=== PATIENT | female | born 1985 | race Caucasian/White ===

== ENCOUNTER 2017-01-25 20:58 | Emergency (ER) | payer MEDICAID ==
[~2017-01-25] VITALS: Ht 121.9 cm; Wt 44.0 kg
[~2017-01-25 20:58] MED LIST: ASCO500T20 PO; BENZ1LOZ58 MM; COLL30OI2 TP; CRAN450C PO; DOCU250C71 PO; DULR10 RC; ERGO400C2 PO; FAMO-129 PO; FERR-57 PO; HYDR-1189 PO; IBUP-1479 PO; LACT1CAP61 PO; LISI10TA PO; MAGN250T31 PO; MAGN355O5 PO; MAGN400O4 PO; METO-304 PO; MINE396O3 TP; MULT-1117 PO; NA P118E RC; NYSCR30 TP; SODI1TAB3 PO; VIT60OIN3 TP; VITA100014 PO; VITA400T9 PO; WHEY227P PO; ZINC113O4 TP; [UNRECOGNIZED DRUG - CODE] TP
[2017-01-25 21:13] VITALS: BP_SYST 119
[2017-01-26 00:31] VITALS: BP_SYST 115
== END 2017-01-26 00:31 | disposition home or self-care (01) ==
LOC: SED 20:58
DX: B34.9 Viral infection, unspecified (principal); I10 Essential (primary) hypertension; M41.9 Scoliosis, unspecified; G80.9 Cerebral palsy, unspecified; Q05.9 Spina bifida, unspecified; Z79.899 Other long term (current) drug therapy; Z88.1 Allergy status to other antibiotic agents; Z91.040 Latex allergy status
CPT/HCPCS: 71010; 99283

== ENCOUNTER 2017-12-12 12:52 | Emergency (ER) | payer MEDICAID ==
[~2017-12-12] VITALS: Ht 121.9 cm; Wt 44.9 kg
[2017-12-12 13:02] VITALS: BP_SYST 120
--- NOTE | 2017-12-12 13:14 | NUR ---
Patient to ER bed 7 to gown for evaluation. Side rails up. Report given to Neha MAXWELL.
--- NOTE | 2017-12-12 13:20 | NUR ---
Pt brought by caregiver, pt A&Ox4, patient arrived in wheelchair,Hx of spina bifida, pt is afebrile, c/o white discharge from vagina and rectum x 3 days, had black BM yesterday, denies bleeding or pain, pt has urostomy bag, repsirations are even and unlabored, cap refill <3, will cont to monitor.
--- NOTE | 2017-12-12 13:25 | NUR ---
Dr Eugene at bedside examining patient
--- NOTE | 2017-12-12 13:52 | NUR ---
X-RAY at bedside
[2017-12-12] MEDS ORDERED: FLUCONAZOLE 200 MG TABLET (DIFLUCAN) PO ONE (15:15)
--- NOTE | 2017-12-12 15:25 | NUR ---
Pt medicated with PO abx tolerated well.
[2017-12-12] MEDS ORDERED: FLUCONAZOLE 100 MG TABLET (DIFLUCAN) PO ONE (15:30)
--- NOTE | 2017-12-12 15:40 | NUR ---
Patient given written and verbal discharge instructions and verbalizes understanding. ER MD discussed with patient the results and treatment provided. Patient in stable condition. ID arm band removed. Rx of [place], given. Patient educated on pain management and to follow up with OB. Pain Scale 0/10. Opportunity for questions provided and answered. Medication side effect fact sheet provided.
[2017-12-12 15:41] VITALS: BP_SYST 110
== END 2017-12-12 15:40 | disposition home or self-care (01) ==
LOC: SED 12:52
DX: B37.3 Candidiasis of vulva and vagina (principal); I10 Essential (primary) hypertension; M41.9 Scoliosis, unspecified; Z88.1 Allergy status to other antibiotic agents; Z91.040 Latex allergy status; Z79.899 Other long term (current) drug therapy
CPT/HCPCS: 74018; 81025; 99283

== ENCOUNTER 2018-03-27 13:04 | Inpatient (IN) | payer MEDICAID ==
[~2018-03-27] VITALS: Ht 121.9 cm; Wt 45.8 kg
[~2018-03-27 13:04] MED LIST changes: -IBUP-1479 PO; +IBUP-1968 PO; +MAGN250T10 PO; -MAGN250T31 PO; -MAGN400O4 PO; -METO-304 PO; +METO-540 PO; +MOM PO
[2018-03-27 13:17] VITALS: BP_SYST 124
[2018-03-27 14:11] LABS: BASOPHILS % (AUTO) 0.5 % (0.0-2.0); EOSINOPHILS # (AUTO) 0.4 K/uL (0.0-0.4); EOSINOPHILS % (AUTO) 4.9 % (0.0-4.0); HEMATOCRIT 38.9 % (36-48); HEMOGLOBIN 13.3 g/dL (12.0-16.0); LYMPHOCYTES # (AUTO) 2.5 K/uL (1.0-5.5); LYMPHOCYTES % (AUTO) 33.9 % (20.5-51.5); MEAN CORPUSCULAR HEMOGLOBIN 31 pg (27-31); MEAN CORPUSCULAR HGB CONC 34 % (32-36); MEAN CORPUSCULAR VOLUME 90 fL (79.0-98.0); MONOCYTES # (AUTO) 0.6 K/uL (0.0-1.0); MONOCYTES % (AUTO) 8.8 % (1.7-9.3); NEUTROPHILS # (AUTO) 3.8 K/uL (1.8-7.7); NEUTROPHILS % (AUTO) 51.9 % (40.0-70.0); PLATELET COUNT (AUTO) 459 K/uL (130-430); RED BLOOD CELL COUNT(AUTO) 4.31 MIL/uL (4.2-6.2); RED CELL DISTRIBUTION WIDTH 11.7 % (9.0-15.0); WHITE BLOOD COUNT (AUTO) 7.3 K/uL (4.8-10.8)
[2018-03-27 14:29] LABS: CALCIUM 9.4 mg/dL (8.4-11.0); CREATININE 0.36 mg/dL (0.55-1.30)
[2018-03-27 14:34] LABS: ALBUMIN 2.8 g/dL (3.4-4.8); TOTAL BILIRUBIN 0.3 mg/dL (0.0-1.0)
[2018-03-27] MEDS ORDERED: SODIUM CHLORIDE 3% *HI-ALERT* 500 ML IV ONE (15:00)
[2018-03-27] MEDS ORDERED: HYDROcodone/ACETAMIN 5-325 MG TAB (NORCO/ VICODIN) PO PRN ×3 (16:15→17:00)
[2018-03-27] MEDS ORDERED: IBUPROFEN 400 MG TABLET PO PRN ×2 (16:15→17:00)
[2018-03-27] MEDS ORDERED: MILK OF MAGNESIA 30 ML UDC PO PRN (16:15)
[2018-03-27 16:47] VITALS: BP_SYST 140
[2018-03-27] MEDS ORDERED: NACL 0.9% 1,000 ML IV SCH (16:55)
[2018-03-27] MEDS ORDERED: ZOLPIDEM TARTRATE 5 MG TABLET PO PRN (17:00)
[2018-03-27] MEDS ORDERED: ONDANSETRON HCL 4 MG/2 ML VIAL IVP PRN (17:00)
[2018-03-27] MEDS ORDERED: COMMUNICATION ORDER XX ONE (17:30)
[2018-03-27 17:44] LABS: BILIRUBIN,URINE NEGATIVE (NEGATIVE); CLARITY/URINE SL CLOUDY (CLEAR); COLOR,URINE YELLOW (YELLOW); GLUCOSE,URINE NEGATIVE (NEGATIVE); KETONES,URINE NEGATIVE (NEGATIVE); LEUKOCYTE ESTERASE ,URINE 1+ (NEGATIVE); NITRITE, URINE NEGATIVE (NEGATIVE); PH,URINE 7.5 (5.0-8.0); PROTEIN URINE 2+ (NEGATIVE); UROBILINOGEN,URINE 0.2 (0.2-1.0)
[2018-03-27 17:45] LABS: BLOOD, URINE TRACE (NEGATIVE)
[2018-03-27] MEDS ORDERED: SODIUM CHLORIDE 3% *HI-ALERT* 200 ML IV ONE (17:45)
[2018-03-27 17:47] LABS: BACTERIA,URINE MANY /HPF (None Seen); RBC,URINE 0-3 /HPF (0-3); URINE AMORPHOUS PHOSPHATES 2+ /HPF (None Seen)
[2018-03-27 20:51] VITALS: BP_SYST 115
[2018-03-27] MEDS: DOCUSATE SODIUM 100 MG CAPSULE PO SCH (20:51)
[2018-03-27] MEDS: LISINOPRIL 5 MG TABLET PO SCH (20:51)
[2018-03-27] MEDS: FAMOTIDINE 20 MG TABLET PO SCH (20:51)
[2018-03-27 23:49] VITALS: BP_SYST 104
[2018-03-27 23:57] LABS: CALCIUM 8.7 mg/dL (8.4-11.0); CREATININE 0.24 mg/dL (0.55-1.30); POTASSIUM 4.2 mmol/L (3.5-5.1)
[2018-03-28] MEDS ORDERED: COMMUNICATION ORDER XX ONE (01:15)
[2018-03-28 07:14] LABS: BASOPHILS # (AUTO) 0.1 K/uL (0.0-0.2); BASOPHILS % (AUTO) 0.9 % (0.0-2.0); EOSINOPHILS # (AUTO) 0.3 K/uL (0.0-0.4); EOSINOPHILS % (AUTO) 4.7 % (0.0-4.0); HEMOGLOBIN 11.7 g/dL (12.0-16.0); LYMPHOCYTES # (AUTO) 2.1 K/uL (1.0-5.5); LYMPHOCYTES % (AUTO) 28.6 % (20.5-51.5); MEAN CORPUSCULAR HEMOGLOBIN 32 pg (27-31); MEAN CORPUSCULAR HGB CONC 34 % (32-36); MEAN CORPUSCULAR VOLUME 92 fL (79.0-98.0); MONOCYTES # (AUTO) 0.6 K/uL (0.0-1.0); MONOCYTES % (AUTO) 8.2 % (1.7-9.3); NEUTROPHILS # (AUTO) 4.2 K/uL (1.8-7.7); NEUTROPHILS % (AUTO) 57.6 % (40.0-70.0); PLATELET COUNT (AUTO) 428 K/uL (130-430); RED BLOOD CELL COUNT(AUTO) 3.69 MIL/uL (4.2-6.2); RED CELL DISTRIBUTION WIDTH 11.7 % (9.0-15.0); WHITE BLOOD COUNT (AUTO) 7.3 K/uL (4.8-10.8)
[2018-03-28 07:50] VITALS: BP_SYST 112
[2018-03-28 07:56] LABS: POTASSIUM 4.5 mmol/L (3.5-5.1)
[2018-03-28 07:57] LABS: CALCIUM 8.7 mg/dL (8.4-11.0); CREATININE 0.21 mg/dL (0.55-1.30); THYROID STIMULATING HORMONE 2.24 uIu/mL (0.34-4.82)
[2018-03-28] MEDS ORDERED: MAG-AL HYDROX/SIMETH 30 ML UDC PO ONE (08:45)
[2018-03-28] MEDS: LISINOPRIL 5 MG TABLET PO SCH ×2 (08:52→20:35)
[2018-03-28] MEDS: DOCUSATE SODIUM 100 MG CAPSULE PO SCH ×2 (08:53→20:31)
[2018-03-28] MEDS: FAMOTIDINE 20 MG TABLET PO SCH ×2 (08:53→20:31)
[2018-03-28] MEDS: METOPROLOL SUCCINATE 25 MG TAB.SR.24H (TOPROL XL) PO SCH (08:54)
[2018-03-28] MEDS: SODIUM CHLORIDE 500 MG TABLET PO SCH ×2 (09:04→20:30)
[2018-03-28] MEDS: NACL 0.9% 1,000 ML IV SCH (09:10)
[2018-03-28 12:43] VITALS: BP_SYST 97
[2018-03-28 16:39] VITALS: BP_SYST 100
[2018-03-28 20:00] VITALS: BP_SYST 100
[2018-03-28] MEDS: ONDANSETRON HCL 4 MG/2 ML VIAL IVP PRN (20:32)
[2018-03-28 23:56] VITALS: BP_SYST 95
[2018-03-29] MEDS: NACL 0.9% 1,000 ML IV SCH (01:31)
[2018-03-29] MEDS: ONDANSETRON HCL 4 MG/2 ML VIAL IVP PRN ×2 (01:31→08:31)
[2018-03-29 06:58] LABS: ALBUMIN 2.1 g/dL (3.4-4.8); CALCIUM 8.5 mg/dL (8.4-11.0); CREATININE 0.24 mg/dL (0.55-1.30); POTASSIUM 4.4 mmol/L (3.5-5.1); TOTAL BILIRUBIN 0.5 mg/dL (0.0-1.0)
[2018-03-29 07:26] LABS: BASOPHILS # (AUTO) 0.1 K/uL (0.0-0.2); BASOPHILS % (AUTO) 0.7 % (0.0-2.0); EOSINOPHILS # (AUTO) 0.4 K/uL (0.0-0.4); EOSINOPHILS % (AUTO) 4.9 % (0.0-4.0); HEMATOCRIT 32.2 % (36-48); HEMOGLOBIN 11.1 g/dL (12.0-16.0); LYMPHOCYTES # (AUTO) 2.5 K/uL (1.0-5.5); LYMPHOCYTES % (AUTO) 32.1 % (20.5-51.5); MEAN CORPUSCULAR HEMOGLOBIN 32 pg (27-31); MEAN CORPUSCULAR HGB CONC 35 % (32-36); MEAN CORPUSCULAR VOLUME 91 fL (79.0-98.0); MONOCYTES # (AUTO) 0.7 K/uL (0.0-1.0); MONOCYTES % (AUTO) 8.5 % (1.7-9.3); NEUTROPHILS % (AUTO) 53.8 % (40.0-70.0); PLATELET COUNT (AUTO) 398 K/uL (130-430); RED BLOOD CELL COUNT(AUTO) 3.53 MIL/uL (4.2-6.2); RED CELL DISTRIBUTION WIDTH 11.6 % (9.0-15.0); WHITE BLOOD COUNT (AUTO) 7.7 K/uL (4.8-10.8)
[2018-03-29 08:00] VITALS: BP_SYST 92
[2018-03-29] MEDS: FAMOTIDINE 20 MG TABLET PO SCH (08:31)
[2018-03-29] MEDS: SODIUM CHLORIDE 500 MG TABLET PO SCH (08:31)
[2018-03-29] MEDS: DOCUSATE SODIUM 100 MG CAPSULE PO SCH (08:32)
[2018-03-29] MEDS: METOPROLOL SUCCINATE 25 MG TAB.SR.24H (TOPROL XL) PO SCH (09:00)
[2018-03-29] MEDS: LISINOPRIL 5 MG TABLET PO SCH (09:00)
[2018-03-29 12:37] VITALS: BP_SYST 97
[2018-03-29 15:39] VITALS: BP_SYST 100
[2018-03-29] MEDS ORDERED: SOD (15:45)
[2018-03-29 16:00] VITALS: BP_SYST 100
[2018-03-29] MEDS ORDERED: SODIUM CHLORIDE 500 MG TABLET PO SCH (21:00)
== END 2018-03-29 19:10 | disposition home or self-care (01) | DRG 426 ==
LOC: SED 13:04 → STU 16:14
PROVIDERS: ADMIT Internal Medicine; ATTEND Internal Medicine
DX: E87.1 Hypo-osmolality and hyponatremia (principal); E44.1 Mild protein-calorie malnutrition; G89.29 Other chronic pain; I10 Essential (primary) hypertension; G80.9 Cerebral palsy, unspecified; Z87.442 Personal history of urinary calculi; Z93.6 Other artificial openings of urinary tract status; Z79.899 Other long term (current) drug therapy; Z68.30 Body mass index [BMI] 30.0-30.9, adult; Z88.1 Allergy status to other antibiotic agents; Z91.040 Latex allergy status
CPT/HCPCS: 36415; 80048; 80053; 81000-TC; 83735-TC; 84302-TC; 84443-TC; 85025; 93005; 99291; J2405; J3490; J7030

== ENCOUNTER 2018-09-19 10:25 | Inpatient (IN) | payer MEDICAID ==
[~2018-09-19] VITALS: Ht 121.9 cm; Wt 46.3 kg
[~2018-09-19 10:25] MED LIST changes: -SODI1TAB3 PO
[2018-09-19 10:30] VITALS: BP_SYST 102
[2018-09-19] MEDS ORDERED: NACL 0.9% 1,000 ML IV ONE (11:23)
[2018-09-19] MEDS ORDERED: ONDANSETRON HCL 4 MG/2 ML VIAL IVP ONE (11:30)
[2018-09-19] MEDS ORDERED: PANTOPRAZOLE SODIUM 40 MG/VIAL (PROTONIX) IVP ONE (11:30)
[2018-09-19] MEDS ORDERED: KETOROLAC TROMETHAMINE 30 MG VIAL IVP ONE (11:30)
[2018-09-19 11:50] LABS: BASOPHILS % (AUTO) 0.1 % (0.0-2.0); HEMATOCRIT 32.5 % (36-48); HEMOGLOBIN 11.1 g/dL (12.0-16.0); LYMPHOCYTES # (AUTO) 0.9 K/uL (1.0-5.5); LYMPHOCYTES % (AUTO) 5.7 % (20.5-51.5); MEAN CORPUSCULAR HEMOGLOBIN 33 pg (27-31); MEAN CORPUSCULAR HGB CONC 34 % (32-36); MEAN CORPUSCULAR VOLUME 95 fL (79.0-98.0); MONOCYTES # (AUTO) 0.7 K/uL (0.0-1.0); NEUTROPHILS # (AUTO) 14.9 K/uL (1.8-7.7); NEUTROPHILS % (AUTO) 90.2 % (40.0-70.0); PLATELET COUNT (AUTO) 451 K/uL (130-430); RED BLOOD CELL COUNT(AUTO) 3.42 MIL/uL (4.2-6.2); RED CELL DISTRIBUTION WIDTH 12.2 % (9.0-15.0); WHITE BLOOD COUNT (AUTO) 16.5 K/uL (4.8-10.8)
[2018-09-19 12:06] LABS: CALCIUM 9.5 mg/dL (8.4-11.0); CREATININE 0.39 mg/dL (0.55-1.30); POTASSIUM 3.9 mmol/L (3.5-5.1)
[2018-09-19 12:10] LABS: ALBUMIN 2.4 g/dL (3.4-4.8); TOTAL BILIRUBIN 0.6 mg/dL (0.0-1.0)
[2018-09-19] MEDS ORDERED: NACL 0.9% 1,500 ML IV ONE (12:15)
[2018-09-19 12:40] LABS: BILIRUBIN,URINE NEGATIVE (NEGATIVE); BLOOD, URINE 2+ (NEGATIVE); CLARITY/URINE HAZY (CLEAR); COLOR,URINE YELLOW (YELLOW); GLUCOSE,URINE NEGATIVE (NEGATIVE); KETONES,URINE 3+ (NEGATIVE); LEUKOCYTE ESTERASE ,URINE 3+ (NEGATIVE); NITRITE, URINE NEGATIVE (NEGATIVE); PH,URINE 8.5 (5.0-8.0); PROTEIN URINE 3+ (NEGATIVE); UROBILINOGEN,URINE 0.2 (0.2-1.0)
[2018-09-19] MEDS ORDERED: LEVOFLOXACIN 500 MG/D5W 100 ML IV ONE (12:45)
[2018-09-19 12:59] LABS: BACTERIA,URINE MODERATE /HPF (None Seen); RBC,URINE 20-50 /HPF (0-3); WBC,URINE 50-80 /HPF (0-3)
[2018-09-19 13:02] LABS: URINE AMORPHOUS PHOSPHATES 2+ /HPF (None Seen)
[2018-09-19 13:08] LABS: INR 1.2 (0.8-1.2); PROTHROMBIN TIME 11.7 SECS (9.5-12.5)
[2018-09-19] MEDS ORDERED: MUPIROCIN 2% TOPICAL OINTMENT 22 GM NS PRN (15:45)
[2018-09-19] MEDS ORDERED: ZOLPIDEM TARTRATE 5 MG TABLET PO PRN (15:45)
[2018-09-19] MEDS ORDERED: DOCUSATE SODIUM 100 MG CAPSULE PO PRN (15:45)
[2018-09-19] MEDS ORDERED: ONDANSETRON HCL 4 MG/2 ML VIAL IVP PRN (15:45)
[2018-09-19] MEDS ORDERED: MAGNESIUM SULFATE 50 ML IV PRN (15:45)
[2018-09-19] MEDS ORDERED: LORazepam 2 MG/ML VIAL IVP PRN (15:45)
[2018-09-19] MEDS ORDERED: POTASSIUM CHLORIDE 20 MEQ TAB.PRT.SR PO PRN (15:45)
[2018-09-19] MEDS ORDERED: MORPHINE 2 MG/ML INJ. SYRINGE IVP PRN (15:45)
[2018-09-19] MEDS ORDERED: ACETAMINOPHEN 325 MG TABLET PO PRN (15:45)
[2018-09-19 16:10] VITALS: BP_SYST 129
[2018-09-19] MEDS ORDERED: cefTRIAXone 1 GM IVPB PREMIX 50 ML IV ONE (17:00)
[2018-09-19] MEDS: NACL 0.9% 1,000 ML IV SCH (17:34)
[2018-09-19] MEDS: MORPHINE 2 MG/ML INJ. SYRINGE IVP PRN (17:41)
[2018-09-19 20:00] VITALS: BP_SYST 95
[2018-09-19] MEDS: DOCUSATE SODIUM 100 MG CAPSULE PO SCH (21:06)
[2018-09-19] MEDS: HEPARIN SODIUM,PORCINE 5000 UNITS/ML VIAL SUBCUT SCH (21:08)
[2018-09-19 22:01] LABS: HCG,QUAL RESULT NEGATIVE (NEGATIVE)
[2018-09-20 00:50] VITALS: BP_SYST 96
[2018-09-20] MEDS ORDERED: DIPHENHYDRAMINE HCL 25 MG CAPSULE PO PRN (01:00)
[2018-09-20] MEDS: MORPHINE 2 MG/ML INJ. SYRINGE IVP PRN ×4 (04:31→22:14)
[2018-09-20] MEDS: NACL 0.9% 1,000 ML IV SCH ×3 (04:31→16:37)
[2018-09-20 06:36] LABS: BASOPHILS % (AUTO) 0.3 % (0.0-2.0); EOSINOPHILS # (AUTO) 0.1 K/uL (0.0-0.4); EOSINOPHILS % (AUTO) 0.6 % (0.0-4.0); HEMATOCRIT 30.9 % (36-48); HEMOGLOBIN 10.7 g/dL (12.0-16.0); LYMPHOCYTES # (AUTO) 1.3 K/uL (1.0-5.5); LYMPHOCYTES % (AUTO) 13.9 % (20.5-51.5); MEAN CORPUSCULAR HEMOGLOBIN 33 pg (27-31); MEAN CORPUSCULAR HGB CONC 35 % (32-36); MEAN CORPUSCULAR VOLUME 95 fL (79.0-98.0); MONOCYTES # (AUTO) 0.7 K/uL (0.0-1.0); MONOCYTES % (AUTO) 7.8 % (1.7-9.3); NEUTROPHILS % (AUTO) 77.4 % (40.0-70.0); PLATELET COUNT (AUTO) 382 K/uL (130-430); RED BLOOD CELL COUNT(AUTO) 3.26 MIL/uL (4.2-6.2); RED CELL DISTRIBUTION WIDTH 12.4 % (9.0-15.0)
[2018-09-20 06:58] LABS: CALCIUM 8.3 mg/dL (8.4-11.0); CREATININE 0.42 mg/dL (0.55-1.30); POTASSIUM 3.7 mmol/L (3.5-5.1)
[2018-09-20 07:00] LABS: CREATININE 0.38 mg/dL (0.55-1.30); POTASSIUM 3.7 mmol/L (3.5-5.1)
[2018-09-20 07:22] LABS: CALCIUM 8.3 mg/dL (8.4-10.2)
[2018-09-20] MEDS: cefTRIAXone 1 GM IVPB PREMIX 50 ML IV SCH (08:16)
[2018-09-20] MEDS: HEPARIN SODIUM,PORCINE 5000 UNITS/ML VIAL SUBCUT SCH ×2 (08:18→22:20)
[2018-09-20] MEDS ORDERED: DIATR MEGLU/DIATRIZ SOD 30 ML SOLUTION PO ONE (08:26)
[2018-09-20 08:50] VITALS: BP_SYST 103
[2018-09-20] MEDS: ASCORBIC ACID 500 MG TABLET PO SCH (09:00)
[2018-09-20] MEDS: DOCUSATE SODIUM 100 MG CAPSULE PO SCH ×3 (09:00→22:13)
[2018-09-20] MEDS ORDERED: IOHEXOL 100 ML IV ONE (09:45)
[2018-09-20 12:35] VITALS: BP_SYST 90
[2018-09-20 16:45] VITALS: BP_SYST 94
[2018-09-20] MEDS ORDERED: NA PHOS,M-B/NA PHOS,DI-BA 118 ML (FLEET ENEMA) RC ONE (17:00)
[2018-09-20] MEDS ORDERED: BISACODYL 5 MG TABLET.DR (DULCOLAX) PO ONE (17:00)
[2018-09-20] MEDS ORDERED: BALSAM PERU/CASTOR OIL 60 GM OINT...G. TP ONE (17:00)
[2018-09-20 20:24] VITALS: BP_SYST 101
[2018-09-21 01:34] VITALS: BP_SYST 101
[2018-09-21] MEDS: NACL 0.9% 1,000 ML IV SCH (03:42)
[2018-09-21 07:55] LABS: BASOPHILS % (AUTO) 0.5 % (0.0-2.0); EOSINOPHILS # (AUTO) 0.1 K/uL (0.0-0.4); EOSINOPHILS % (AUTO) 1.6 % (0.0-4.0); HEMATOCRIT 30.5 % (36-48); HEMOGLOBIN 10.4 g/dL (12.0-16.0); LYMPHOCYTES # (AUTO) 1.4 K/uL (1.0-5.5); MEAN CORPUSCULAR HEMOGLOBIN 32 pg (27-31); MEAN CORPUSCULAR HGB CONC 34 % (32-36); MEAN CORPUSCULAR VOLUME 95 fL (79.0-98.0); MONOCYTES # (AUTO) 0.5 K/uL (0.0-1.0); MONOCYTES % (AUTO) 6.9 % (1.7-9.3); NEUTROPHILS # (AUTO) 4.8 K/uL (1.8-7.7); PLATELET COUNT (AUTO) 360 K/uL (130-430); RED BLOOD CELL COUNT(AUTO) 3.23 MIL/uL (4.2-6.2); RED CELL DISTRIBUTION WIDTH 12.5 % (9.0-15.0); WHITE BLOOD COUNT (AUTO) 6.9 K/uL (4.8-10.8)
[2018-09-21 08:19] LABS: CALCIUM 8.3 mg/dL (8.4-11.0); CREATININE 0.34 mg/dL (0.55-1.30); POTASSIUM 3.5 mmol/L (3.5-5.1)
[2018-09-21] MEDS: MORPHINE 2 MG/ML INJ. SYRINGE IVP PRN (08:35)
[2018-09-21] MEDS: cefTRIAXone 1 GM IVPB PREMIX 50 ML IV SCH (08:36)
[2018-09-21 08:43] VITALS: BP_SYST 101
[2018-09-21] MEDS: ASCORBIC ACID 500 MG TABLET PO SCH (08:59)
[2018-09-21] MEDS: DOCUSATE SODIUM 100 MG CAPSULE PO SCH (08:59)
[2018-09-21] MEDS ORDERED: BALSAM PERU/CASTOR OIL 60 GM OINT...G. TP SCH (09:00)
[2018-09-21] MEDS: HEPARIN SODIUM,PORCINE 5000 UNITS/ML VIAL SUBCUT SCH (09:04)
[2018-09-21 10:42] VITALS: BP_SYST 110
[2018-09-21 11:18] VITALS: BP_SYST 109
== END 2018-09-21 14:00 | disposition home or self-care (01) | DRG 720 ==
LOC: SED 10:25 → SMU 15:36 → STU 17:44 → SMU 09-20 11:05
PROVIDERS: ADMIT General Practice; ATTEND General Practice
DX: A41.9 Sepsis, unspecified organism (principal); E43 Unspecified severe protein-calorie malnutrition; F03.90 Unspecified dementia, unspecified severity, without behavioral disturbance, psychotic disturbance, mood disturbance, and anxiety; E87.1 Hypo-osmolality and hyponatremia; N39.0 Urinary tract infection, site not specified; M41.9 Scoliosis, unspecified; N21.0 Calculus in bladder; J44.9 Chronic obstructive pulmonary disease, unspecified; G80.9 Cerebral palsy, unspecified; I10 Essential (primary) hypertension; E11.9 Type 2 diabetes mellitus without complications; K21.9 Gastro-esophageal reflux disease without esophagitis; E03.9 Hypothyroidism, unspecified; Z95.0 Presence of cardiac pacemaker; Z74.01 Bed confinement status; Z88.1 Allergy status to other antibiotic agents; Z79.899 Other long term (current) drug therapy; Z86.73 Personal history of transient ischemic attack (TIA), and cerebral infarction without residual deficits; Z91.040 Latex allergy status; Q05.9 Spina bifida, unspecified
CPT/HCPCS: 36415; 71045; 74018; 80048; 80053; 80069; 81000-TC; 83036; 83605; 83690-TC; 83735-TC; 83935-TC; 84302-TC; 84484; 84703; 85025; 85610-TC; 85730-TC; 87040-TC; 87086; 93005; 96361; 96365; 96375; 99285; C9113; G0378; J0696; J1644; J1885; J1956; J2270; J2405; J7030; Q0163; Q9964; Q9967

== ENCOUNTER 2020-02-29 13:02 | Inpatient (IN) | payer MEDICAID, SELFPAY ==
[~2020-02-29] VITALS: Ht 121.9 cm; Wt 51.3 kg
--- NOTE | 2020-02-29 13:16 | NUR ---
RECEIVED AND IN ROOM, PT HERE FROM SNF FOR UTI.
--- NOTE | 2020-02-29 13:28 | NUR ---
DR SALVADOR IN TO ASSESS
[2020-02-29 13:29] VITALS: BP_SYST 100
[2020-02-29] MEDS ORDERED: NACL 0.9% 2,000 ML IV ONE (13:30)
[2020-02-29 14:19] LABS: HEMATOCRIT 31.1 % (36-48); HEMOGLOBIN 10.2 g/dL (12.0-16.0); MEAN CORPUSCULAR HEMOGLOBIN 31 pg (27-31); MEAN CORPUSCULAR HGB CONC 33 % (32-36); MEAN CORPUSCULAR VOLUME 95 fL (79.0-98.0); PLATELET COUNT (AUTO) 481 K/uL (130-430); RED BLOOD CELL COUNT(AUTO) 3.29 MIL/uL (4.2-6.2); RED CELL DISTRIBUTION WIDTH 15.2 % (9.0-15.0)
[2020-02-29 14:25] LABS: WHITE BLOOD COUNT (AUTO) 34.3 K/uL (4.8-10.8)
[2020-02-29 14:31] LABS: CALCIUM 8.5 mg/dL (8.4-11.0); CREATININE 0.98 mg/dL (0.55-1.30); POTASSIUM 4.8 mmol/L (3.5-5.1)
[2020-02-29 14:37] LABS: ALBUMIN 1.5 g/dL (3.4-4.8); TOTAL BILIRUBIN 0.2 mg/dL (0.0-1.0)
[2020-02-29 14:45] LABS: BAND % (MANUAL) 4 % (0-6); BASOPHILS % (MANUAL) 0 % (0-2); EOSINOPHILS % (MANUAL) 0 % (0-7); LYMPHOCYTES % (MANUAL) 2 % (20-46); MONOCYTES % (MANUAL) 3 % (0-11)
--- NOTE | 2020-02-29 14:48 | NUR ---
ALERT, CALM, RESP UNLABORE, BLOOD OBTAINED, IV HL 22 LT WRIST
[2020-02-29] MEDS ORDERED: cefTRIAXone 2 GM VIAL ONE (14:52)
[2020-02-29 15:17] LABS: BILIRUBIN,URINE 1+ (NEGATIVE); BLOOD, URINE 3+ (NEGATIVE); CLARITY/URINE CLOUDY (CLEAR); COLOR,URINE YELLOW (YELLOW); GLUCOSE,URINE NEGATIVE (NEGATIVE); KETONES,URINE 1+ (NEGATIVE); LEUKOCYTE ESTERASE ,URINE 3+ (NEGATIVE); NITRITE, URINE NEGATIVE (NEGATIVE); PH,URINE 6.5 (5.0-8.0); PROTEIN URINE 3+ (NEGATIVE); UROBILINOGEN,URINE 0.2 (0.2-1.0)
--- NOTE | 2020-02-29 15:20 | NUR ---
UROSTOMY BAG REPLACED AND UA SENT, PT TOLERATED WELL OSTOMY SITE CLEAR.
[2020-02-29 15:52] LABS: BACTERIA,URINE MODERATE /HPF (None Seen); RBC,URINE >100 /HPF (0-3); WBC,URINE >100 /HPF (0-3)
[2020-02-29 15:53] LABS: MUCUS,URINE 1+ /LPF (None Seen); YEAST,URINE Few /HPF (None Seen)
[2020-02-29] MEDS ORDERED: SULF1TAB47 PO (16:03)
[2020-02-29] MEDS ORDERED: ASCO500T20 PO (16:03)
[2020-02-29] MEDS ORDERED: ACET325T53 PO (16:03)
[2020-02-29] MEDS ORDERED: MOB7.5 PO (16:03)
[2020-02-29] MEDS ORDERED: PRO40 PO (16:03)
[2020-02-29] MEDS ORDERED: FERR-69 PO (16:03)
[2020-02-29] MEDS ORDERED: VITA-137 PO (16:03)
[2020-02-29] MEDS ORDERED: HYDR-4272 PO (16:03)
[2020-02-29] MEDS ORDERED: MULT-1089 PO (16:03)
[2020-02-29] MEDS ORDERED: TAMS0.4C96 PO (16:03)
[2020-02-29] MEDS ORDERED: VITA100014 PO (16:03)
[2020-02-29] MEDS ORDERED: LISI-600 PO (16:03)
--- NOTE | 2020-02-29 16:13 | NUR ---
ADMIT ORDERS RECEIVED FOR M/S DX UTI
[2020-02-29] MEDS ORDERED: MORPHINE 4 MG/ML INJ. SYRINGE IVP ONE (16:30)
--- NOTE | 2020-02-29 16:35 | NUR ---
Patient will be admitted to care of [facility]. Admitted to M/S unit. Will go to room 117. Belongings list completed. Complete and up to date summary report printed. SBAR report to be given at bedside with opportunity for questions.
--- NOTE | 2020-02-29 16:40 | NUR ---
REPORT NOTES: RECEIVED REPORT FROM OSEAS SINGH NURSE. PATIENT IN THE ROOM IN MED SURG UNIT.AWAKE,ALERT AND ORIENTED X4.IV FLUIDS RUNNING AT LEFT WRIST INTACT. ROOM AIR,WITH GOOD SATURATION.
--- NOTE | 2020-02-29 16:45 | NUR ---
ADMISSION: The patient, MARQUISE BEEBE, 34 y/o, F admitted by GEE SHIN MD, was given written information regarding hospital policies, unit procedures and contact persons. Valuables were checked and noted.
--- NOTE | 2020-02-29 16:52 | NUR ---
CONSULTATION PAGED REASON FOR CONSULTATION:UTI WAS CONSULT CALLED?Y PERSON WHO WAS NOTIFIED:NORM CONSULTING PHYSICIAN:RAGHAVENDRA HERNANDEZ CREDIT CONTROL OFFICER SPECIALTY:INFECTIOUS DISEASE CREDIT CONTROL OFFICER PHONE NUMBER:[phone] ORDERING PHYSICIAN:GEE ROGERS
--- NOTE | 2020-02-29 17:00 | NUR ---
Opening Notes Patient is awake, alert and oriented x4. No resp distress noted. Breathing is even and unlabored. Pt denies any pain at this time. Pt remains on bedrest. IV site on left wrist, 22 gauge intact at this time. NS bolus still infusing at this time. Pt is c/o discomfort on back area, will wait for pain meds later. Pt denies any NVD, cough or abnormal bleeding. All needs met. Safety and fall precautions in place. Bed in lowest position, alarm on, locked. Will continue to monitor.
--- NOTE | 2020-02-29 17:15 | NUR ---
MRSA NARES: OBTAINED SWAB AT RIGHT NARES AND SEND TO LAB PER PROTOCOL.
[2020-02-29 17:33] VITALS: BP_SYST 116
--- NOTE | 2020-02-29 19:00 | NUR ---
Closing Notes Pt is laying in bed, watching videos on her phone. Alert and oriented x4. No resp distress noted. Breathing is even and unlabored. Pt denies any pain at this time. IV site on left wrist, 22 gauge intact, saline lock. Urostomy site on lower abdomen in place, dressing dry and clean. No distress at this time. All needs met. Safety and fall precautions in place. Bed in lowest position, alarm on, locked. Will continue to monitor.
--- NOTE | 2020-02-29 19:30 | NUR ---
Initial note: Received report from tia RN. Patient is in bed, resting. No acute distress. Even, nonlabored breathing on room air. IV site is patent, intact, and saline locked. Urostomy is draining cloudy, yellow urine with sediments. Bed is locked at lowest position. Side rails up x3. Bed alarm on. Call light is with patient. Safety and fall precautions in place. Will continue with plan of care.
[2020-02-29 20:00] VITALS: BP_SYST 115
--- NOTE | 2020-02-29 20:08 | NUR ---
HIGH ALERT NOTE: Called Dr. Guillen back at 2007 identified within the medical roster to verify physician authenticity. Notifed MD of patient complaint of 8/10 back pain. New orders received. Verified by readback. RN to input.
[2020-02-29] MEDS ORDERED: MORPHINE 2 MG/ML INJ. SYRINGE IVP ONE (20:15)
--- NOTE | 2020-02-29 22:15 | NUR ---
Rounds: Patient is in bed, on her phone. No signs of acute distress. Even, nonlabored breathing on room air. Call light is with patient. Safety and fall precautions in place. Will continue to monitor.
[2020-02-29] MEDS ORDERED: NALOXONE HCL 0.4 MG/ML AMP (NARCAN) IVP PRN ×3 (23:00)
[2020-02-29] MEDS ORDERED: HYDROcodone/ACETAMIN 5-325 MG TAB (NORCO/ VICODIN) PO PRN (23:00)
[2020-02-29] MEDS ORDERED: LORazepam 2 MG/ML VIAL IVP PRN (23:00)
[2020-02-29] MEDS ORDERED: cefTRIAXone 1 GM IVPB PREMIX 50 ML IV SCH (23:00)
[2020-02-29] MEDS ORDERED: ACETAMINOPHEN 325 MG TABLET PO PRN (23:00)
--- NOTE | 2020-02-29 23:12 | NUR ---
Spoke to [facility] ([facility]) electrical maintenance supervisor, Spoke to Thuy Blackwell's electrical maintenance supervisor. Updated on patient status.
[2020-02-29] MEDS ORDERED: cefTRIAXone 1 GM IVPB PREMIX 50 ML IV ONE (23:54)
[2020-03-01] VITALS: BP_SYST 115
[2020-03-01] MEDS: MORPHINE 2 MG/ML INJ. SYRINGE IVP PRN ×5 (00:04→22:39)
--- NOTE | 2020-03-01 00:04 | NUR ---
Pain: Patient complained of breakthrough pain. Morphine 2mg IVP indicated per MD order. Educated patient on indications and side effects of medications. Patient verbalized understanding. Medication administered per MD order. Patient tolerated well. Will continue to monitor and reassess.
--- NOTE | 2020-03-01 01:36 | NUR ---
Dr. Johnson Rounds: Spoke to Dr. Johnson at the nursing station regarding patient plan of care. MD to input new orders.
[2020-03-01] MEDS: PIPERACILLIN/TAZO 4.5GM/DEX-IS 100 ML IV SCH ×4 (02:30→22:40)
--- NOTE | 2020-03-01 02:35 | NUR ---
Rounds: Patient is sleeping. No s/s of acute distress. Even, nonlabored breathing on room air. Call light is with patient. Safety and fall precautions in place. Will continue monitoring.
[2020-03-01] MEDS ORDERED: PIPERACILLIN/TAZOBACTAM 4.5 GM/VIAL (ZOSYN) IV ONE (03:28)
--- NOTE | 2020-03-01 04:45 | NUR ---
Rounds: Patient is resting in bed. No signs of acute distress. Respirations are even, nonlabored on room air. Call light is with patient. Safety and fall precautions in place. Will continue monitoring.
[2020-03-01] MEDS: NORMAL SALINE 5 ML DISP.SYRIN IVF SCH ×3 (05:25→22:40)
[2020-03-01] MEDS: HYDROcodone/ACETAMIN 10-325 MG TAB PO PRN (05:27)
[2020-03-01] MEDS: ONDANSETRON HCL 4 MG/2 ML VIAL IVP PRN ×3 (05:37→18:02)
--- NOTE | 2020-03-01 05:37 | NUR ---
Vomiting/Pain: Patient complained of vomiting and 7/10 back pain. Zofran 4mg IVP and [place] 10-325mg PO indicated. Educated patient on indications and side effects of medication. Patient verbalized understanding. Administered medications per MD order. Patient tolerated well. Will continue to monitor and reassess.
[2020-03-01] MEDS ORDERED: NORMAL SALINE 5 ML DISP.SYRIN IVF SCH (06:00)
[2020-03-01 06:21] LABS: BASOPHILS # (AUTO) 0.1 K/uL (0.0-0.2); BASOPHILS % (AUTO) 0.2 % (0.0-2.0); EOSINOPHILS % (AUTO) 0.2 % (0.0-4.0); HEMATOCRIT 30.3 % (36-48); LYMPHOCYTES # (AUTO) 1.1 K/uL (1.0-5.5); LYMPHOCYTES % (AUTO) 4.4 % (20.5-51.5); MEAN CORPUSCULAR HEMOGLOBIN 32 pg (27-31); MEAN CORPUSCULAR HGB CONC 33 % (32-36); MEAN CORPUSCULAR VOLUME 96 fL (79.0-98.0); MONOCYTES # (AUTO) 0.7 K/uL (0.0-1.0); MONOCYTES % (AUTO) 2.8 % (1.7-9.3); NEUTROPHILS # (AUTO) 22.1 K/uL (1.8-7.7); NEUTROPHILS % (AUTO) 92.4 % (40.0-70.0); PLATELET COUNT (AUTO) 489 K/uL (130-430); RED BLOOD CELL COUNT(AUTO) 3.17 MIL/uL (4.2-6.2); RED CELL DISTRIBUTION WIDTH 15.7 % (9.0-15.0); WHITE BLOOD COUNT (AUTO) 23.9 K/uL (4.8-10.8)
[2020-03-01 06:24] LABS: CALCIUM 8.4 mg/dL (8.4-11.0); CREATININE 0.67 mg/dL (0.55-1.30); PHOSPHORUS 3.4 mg/dL (2.7-4.5); POTASSIUM 4.5 mmol/L (3.5-5.1)
--- NOTE | 2020-03-01 06:57 | NUR ---
Closing note: Patient is in bed, resting. Educated patient on diet change to 2 gram sodium. Patient verbalized understanding. No acute distress. Even, nonlabored breathing on room air. IV site is patent and intact. Urostomy is draining cloudy, yellow urine with sediments. Bed is locked at lowest position. Side rails up x3. Bed alarm on. Call light is with patient. Safety and fall precautions in place. Will endorse to tia RN. Addendum: 03/01/20 at 0705 by Giuliana Duque RN All needs mets.
[2020-03-01 08:00] VITALS: BP_SYST 116
--- NOTE | 2020-03-01 08:00 | NUR ---
INITIAL NOTE PT AWAKE RESTING IN BED. PT COMPLAINING OF 7/10 BACK PAIN. PRN MORPHINE INDICATED FOR SEVERE PAIN, WILL ADMINISTER AT THIS TIME. VSS. REPOSITIONED PT FOR COMFORT. EMPTIED OUT UROSTOMY, 100CC OUT, YELLOW WITH SEDIMENT. IV SALINE LOCKED. CALL LIGHT WITHIN REACH, BED IN LOW AND LOCKED POSITION WITH BED ALARM ON.
[2020-03-01] MEDS: FERROUS SULFATE 325 MG TABLET.DR PO SCH (08:18)
[2020-03-01] MEDS: TAMSULOSIN HCL 0.4 MG CAP PO SCH (08:18)
[2020-03-01] MEDS: MELOXICAM 7.5 MG TABLET PO SCH (08:18)
[2020-03-01] MEDS: PANTOPRAZOLE SODIUM 40 MG TAB PO SCH (08:19)
[2020-03-01] MEDS: ASCORBIC ACID 500 MG TABLET PO SCH (08:19)
[2020-03-01] MEDS: VITAMIN A 10,000 UNIT CAPSULE PO SCH (08:19)
[2020-03-01] MEDS: MULTIVITAMINS TAB 1 TABLET PO SCH (08:19)
[2020-03-01] MEDS: VITAMIN E 400 UNIT CAPSULE PO SCH (08:19)
[2020-03-01] MEDS: lisinopriL 20 MG TABLET PO SCH (08:19)
[2020-03-01] MEDS ORDERED: SULFAMETHOXAZOLE/TRIMETHOPR DS 1 TABLET PO SCH (09:00)
--- NOTE | 2020-03-01 10:56 | NUR ---
RN ROUNDS/ Hanny SINGH MD MAKING ROUNDS. INFORMED MD PT COMPLAINING OF HEART BURN, NEW ORDERS RECEIVED FOR PEPCID 20MG BID AND SCDS. VERIFIED WITH READ BACK. SPOKE WITH MD REGARDING GATORADE, EDUCATED PT THAT IT COULD POSSIBLY INCREASE ACID REFLUXS. PT VERBALIZED UNDERSTANDING.
[2020-03-01] MEDS ORDERED: FAMOTIDINE 20 MG TABLET PO ONE (11:00)
[2020-03-01 12:00] VITALS: BP_SYST 97
--- NOTE | 2020-03-01 13:59 | NUR ---
PAIN PT COMPLAINING OF BACK PAIN 12/22. REPOSITIONED PT, PRN MORPHINE 2MG ADMINISTERED AT THIS TIME. WILL CONTINUE TO MONITOR.
[2020-03-01 16:00] VITALS: BP_SYST 110
--- NOTE | 2020-03-01 18:51 | NUR ---
CLOSING NOTE PRN PAIN MEDICATIONS AND ZOFRAN ADMINISTERED TO PATIENT. PT EATING FROM DINNER TRAY. IV ZOYSN STILL INFUSING, LOWERED RATED DUE TO PT COMPLAINING OF PAIN IN ARM. CALL LIGHT WITHIN REACH, BED IN LOW AND LOCKED POSITION WITH BED ALARM ON. WILL CONTINUE TO MONITOR UNTIL PT CARE IS ENDORSED TO PATTERN ILLUSTRATOR RN.
--- NOTE | 2020-03-01 19:40 | NUR ---
ROUNDS PATIENT IN BED, ALERT, ORIENTED, NOT IN DISTRESS, VITALS STABLE. DENIES PAIN AT THIS TIME. ASSESSMENT DONE AND DOCUEMNTED. SEE FLOWSHEET. NEEDS ATTENDED TO. SAFETY MEASURES IN PLACED. BED IN LOW AND LOCKED POSITION. CALL LIGHT PLACED WITHIN REACH.
--- NOTE | 2020-03-01 21:25 | NUR ---
MEDICATION DUE MEDICATIONS GIVEN SCHEDULED, TOLERATED WELL. WILL CONTINUE TO MONITOR.
[2020-03-01] MEDS: FAMOTIDINE 20 MG TABLET PO SCH (22:39)
[2020-03-02] VITALS: BP_SYST 101
--- NOTE | 2020-03-02 00:14 | NUR ---
PATIENT RESTING: Patient resting quietly. No acute distress noted. Vital signs within normal range.
--- NOTE | 2020-03-02 02:23 | NUR ---
ROUNDS PATIENT ASLEEP, RESPIRATIONS EVEN AND UNLABORED, WILL CONTINUE TO MONITOR.
[2020-03-02] MEDS: MORPHINE 2 MG/ML INJ. SYRINGE IVP PRN ×5 (03:07→22:27)
--- NOTE | 2020-03-02 04:18 | NUR ---
ROUNDS PATIENT SLEEPING, RESPIRATIONS EVEN AND UNLABORED, WILL CONTINUE TO MONITOR.
[2020-03-02] MEDS: PIPERACILLIN/TAZO 4.5GM/DEX-IS 100 ML IV SCH ×3 (05:09→22:27)
[2020-03-02] MEDS: NORMAL SALINE 5 ML DISP.SYRIN IVF SCH ×3 (05:12→22:00)
--- NOTE | 2020-03-02 06:26 | NUR ---
CLOSING NOTES PATIENT AWAKE, VITALS STABLE, NO COMPLAINTS AT THIS TIME. NEEDS ATTENDED TO. SAFETY MEASURES MAINTAINED. BED IN LOW AND LOCKED POSITION. CALL LIGHT PLACED WITHIN REACH.
[2020-03-02 06:38] LABS: BASOPHILS # (AUTO) 0.1 K/uL (0.0-0.2); BASOPHILS % (AUTO) 0.9 % (0.0-2.0); EOSINOPHILS # (AUTO) 0.6 K/uL (0.0-0.4); EOSINOPHILS % (AUTO) 5.2 % (0.0-4.0); HEMOGLOBIN 10.1 g/dL (12.0-16.0); LYMPHOCYTES # (AUTO) 1.5 K/uL (1.0-5.5); LYMPHOCYTES % (AUTO) 14.1 % (20.5-51.5); MEAN CORPUSCULAR HEMOGLOBIN 32 pg (27-31); MEAN CORPUSCULAR HGB CONC 34 % (32-36); MEAN CORPUSCULAR VOLUME 95 fL (79.0-98.0); MONOCYTES # (AUTO) 0.6 K/uL (0.0-1.0); MONOCYTES % (AUTO) 5.3 % (1.7-9.3); NEUTROPHILS % (AUTO) 74.5 % (40.0-70.0); PLATELET COUNT (AUTO) 510 K/uL (130-430); RED BLOOD CELL COUNT(AUTO) 3.15 MIL/uL (4.2-6.2); RED CELL DISTRIBUTION WIDTH 15.4 % (9.0-15.0); WHITE BLOOD COUNT (AUTO) 10.8 K/uL (4.8-10.8)
[2020-03-02 07:02] LABS: ALBUMIN 1.3 g/dL (3.4-4.8); CALCIUM 9.1 mg/dL (8.4-11.0); CREATININE 0.58 mg/dL (0.55-1.30); POTASSIUM 4.1 mmol/L (3.5-5.1); TOTAL BILIRUBIN 0.4 mg/dL (0.0-1.0)
[2020-03-02 07:23] LABS: C-REACTIVE PROTEIN QUANT 29.9 mg/dL (0-0.5)
--- NOTE | 2020-03-02 07:30 | NUR ---
Nutrition Update Adin Scale 13 noted. Pt admitted for UTI Diet: 2gm Na BMI: 34.5 kg/m2 RD to follow per nutrition care standards.
[2020-03-02 08:00] VITALS: BP_SYST 103
--- NOTE | 2020-03-02 08:00 | NUR ---
initial notes awake, refused to eat breakfast. complain of mild back pain, repositioned. update plan of care. Call light within reach
[2020-03-02 08:19] LABS: ERYTHROCYTE SEDIMENTATION RATE 79 MM/HR (0-20)
[2020-03-02] MEDS: PANTOPRAZOLE SODIUM 40 MG TAB PO SCH (08:26)
[2020-03-02] MEDS: FAMOTIDINE 20 MG TABLET PO SCH ×2 (08:26→20:13)
[2020-03-02] MEDS: FERROUS SULFATE 325 MG TABLET.DR PO SCH (08:27)
[2020-03-02] MEDS: MELOXICAM 7.5 MG TABLET PO SCH (08:27)
[2020-03-02] MEDS: ASCORBIC ACID 500 MG TABLET PO SCH (08:27)
[2020-03-02] MEDS: TAMSULOSIN HCL 0.4 MG CAP PO SCH (08:27)
[2020-03-02] MEDS: MULTIVITAMINS TAB 1 TABLET PO SCH (08:27)
[2020-03-02] MEDS: lisinopriL 20 MG TABLET PO SCH (08:28)
[2020-03-02] MEDS: VITAMIN A 10,000 UNIT CAPSULE PO SCH (08:29)
[2020-03-02] MEDS: VITAMIN E 400 UNIT CAPSULE PO SCH (08:29)
--- NOTE | 2020-03-02 10:00 | NUR ---
Notes on her phone, no distress noted. enc to call for help as needed.
[2020-03-02 11:30] VITALS: BP_SYST 113
--- NOTE | 2020-03-02 12:00 | NUR ---
pt is very picky on foods, informed bill peddler for patient's food preference.
--- NOTE | 2020-03-02 12:52 | NUR ---
Dietitian Recommendations *Recommend: liberalize diet to regular to encourage PO intake. *Adhere to food preferences. Please see Nutritional Assessment for details. TRAVIS JAMA
--- NOTE | 2020-03-02 15:00 | NUR ---
Notes Resting in bed, pain is control at this time. repositioned for comfort.
[2020-03-02 15:40] VITALS: BP_SYST 127
[2020-03-02] MEDS: D5/0.45 NS 1,000 ML IV SCH (18:04)
--- NOTE | 2020-03-02 19:25 | NUR ---
CHANGE OF SHIFT; pt. awake, watching tv when received. no acute distress. was just medicated for pain before change of shift. call light at bedside. on fall risk precaution.
[2020-03-02 20:15] VITALS: BP_SYST 105
--- NOTE | 2020-03-02 20:15 | NUR ---
NOTES: VS checked. due po med given, been drinking a lot of fluids. IVF via left hand. noted bruising on rt. arm. moves extremities/ urostomy bag intact on left abdomen. pt. needs attended. call light within reach.
--- NOTE | 2020-03-02 22:33 | NUR ---
NOTES: pt. medicated with IV Morphine for c/o chronic back pain. drained urostomy bag with yellow urine. IV site patent. pt. needs attended. IV antibiotic in progress.
--- NOTE | 2020-03-02 23:38 | NUR ---
NOTES: pt. checked ,dozing off. IVF continuous. call light within reach.
--- NOTE | 2020-03-03 00:45 | NUR ---
NOTES; pt. sleeping when checked, IVF continuous. call light within reach.
[2020-03-03 02:40] VITALS: BP_SYST 96
--- NOTE | 2020-03-03 03:00 | NUR ---
NOTES: pt. remain asleep. IVF continuous. condition observed, continue to monitor.
--- NOTE | 2020-03-03 03:15 | NUR ---
NOTES: pt. awakened, VS rechecked. skin care and partial am /colton care done. sacral area skin slightly excoriated and redness on colton area, clean with soap and water/pat dry and applied z janeen, big scar on her back. urostomy bag drained. pt. both legs bent ,unable to straighten, both legs pretty swollen and feet. repositoned and turn to sides.
[2020-03-03] MEDS: MORPHINE 2 MG/ML INJ. SYRINGE IVP PRN ×2 (03:34→22:55)
--- NOTE | 2020-03-03 03:35 | NUR ---
NOTES: medicated with Morphine IV as ordered pain scale 12/22. IV site patent. call light within reach. bed alarm on.
--- NOTE | 2020-03-03 04:30 | NUR ---
NOTES: pt. noted relief from pain, sleeping. condition observed, continue to monitor.
--- NOTE | 2020-03-03 05:30 | NUR ---
NOTES: pt. remain asleep. condition unchanged.
[2020-03-03] MEDS: D5/0.45 NS 1,000 ML IV SCH ×3 (05:44→23:45)
[2020-03-03] MEDS: NORMAL SALINE 5 ML DISP.SYRIN IVF SCH ×3 (05:45→21:22)
[2020-03-03] MEDS: PIPERACILLIN/TAZO 4.5GM/DEX-IS 100 ML IV SCH ×3 (05:45→21:22)
--- NOTE | 2020-03-03 06:45 | NUR ---
CLOSING NOTES; pt. still asleep. IVF patent via left hand/wrist site, IV antibiotic running slow per pt. request. urostomy bag on rt. side intact. for further care and assistance. will endorse to incoming shift.
[2020-03-03 07:30] VITALS: BP_SYST 101
--- NOTE | 2020-03-03 08:00 | NUR ---
AM ROUNDS: PATIENT AWAKE LYING ON THE BED DURING ROUNDS. IV FLUIDS RUNNING AT LEFT HAND INTACT. CALL LIGHT WITH IN REACH. BED LOCKED AT LOWEST POSITION. NO ACUTE DISTRESS. NOT IN ANY RESPIRATORY DISTRESS.
[2020-03-03] MEDS: MELOXICAM 7.5 MG TABLET PO SCH (08:19)
[2020-03-03] MEDS: MULTIVITAMINS TAB 1 TABLET PO SCH (08:20)
[2020-03-03] MEDS: ASCORBIC ACID 500 MG TABLET PO SCH (08:20)
[2020-03-03] MEDS: TAMSULOSIN HCL 0.4 MG CAP PO SCH (08:20)
[2020-03-03] MEDS: FAMOTIDINE 20 MG TABLET PO SCH ×2 (08:20→21:21)
[2020-03-03] MEDS: FERROUS SULFATE 325 MG TABLET.DR PO SCH (08:20)
[2020-03-03] MEDS: PANTOPRAZOLE SODIUM 40 MG TAB PO SCH (08:20)
[2020-03-03] MEDS: VITAMIN E 400 UNIT CAPSULE PO SCH (08:21)
[2020-03-03] MEDS: VITAMIN A 10,000 UNIT CAPSULE PO SCH (08:22)
[2020-03-03 08:57] LABS: BASOPHILS # (AUTO) 0.1 K/uL (0.0-0.2); BASOPHILS % (AUTO) 1.1 % (0.0-2.0); EOSINOPHILS # (AUTO) 0.6 K/uL (0.0-0.4); EOSINOPHILS % (AUTO) 8.3 % (0.0-4.0); HEMATOCRIT 26.5 % (36-48); HEMOGLOBIN 9.3 g/dL (12.0-16.0); LYMPHOCYTES # (AUTO) 1.4 K/uL (1.0-5.5); LYMPHOCYTES % (AUTO) 21.5 % (20.5-51.5); MEAN CORPUSCULAR HEMOGLOBIN 33 pg (27-31); MEAN CORPUSCULAR HGB CONC 35 % (32-36); MEAN CORPUSCULAR VOLUME 94 fL (79.0-98.0); MONOCYTES # (AUTO) 0.5 K/uL (0.0-1.0); MONOCYTES % (AUTO) 7.2 % (1.7-9.3); NEUTROPHILS # (AUTO) 4.1 K/uL (1.8-7.7); NEUTROPHILS % (AUTO) 61.9 % (40.0-70.0); PLATELET COUNT (AUTO) 511 K/uL (130-430); RED BLOOD CELL COUNT(AUTO) 2.82 MIL/uL (4.2-6.2); RED CELL DISTRIBUTION WIDTH 15.2 % (9.0-15.0); WHITE BLOOD COUNT (AUTO) 6.7 K/uL (4.8-10.8)
[2020-03-03 09:00] LABS: CALCIUM 8.1 mg/dL (8.4-11.0); CREATININE 0.46 mg/dL (0.55-1.30); POTASSIUM 3.5 mmol/L (3.5-5.1)
[2020-03-03] MEDS: lisinopriL 20 MG TABLET PO SCH (09:00)
[2020-03-03 09:23] LABS: C-REACTIVE PROTEIN QUANT 13.5 mg/dL (0-0.5)
--- NOTE | 2020-03-03 09:25 | NUR ---
UROSTOMY CARE: EMPTIED UROSTOMY AND RECORDED. NO PROBLEM.
[2020-03-03 09:54] LABS: ERYTHROCYTE SEDIMENTATION RATE 66 MM/HR (0-20)
[2020-03-03 12:13] VITALS: BP_SYST 111
[2020-03-03] MEDS: HYDROcodone/ACETAMIN 10-325 MG TAB PO PRN ×2 (13:40→19:59)
--- NOTE | 2020-03-03 13:40 | NUR ---
NORCO: PATIENT C/O BACK PAIN AND DUE PO NORCO GIVEN PER PATIENT'S REQUEST. NO PROBLEM.
--- NOTE | 2020-03-03 15:26 | NUR ---
Discharge Planning: KEVIN faxed patient referral to [facility] ([phone]) KEVIN to follow up Addendum: 03/03/20 at 1624 by Vikki SALEH KEVIN followed up on patient referral to [facility] ([phone]) per [facility] patient will go to [facility], KEVIN made CM aware.
--- NOTE | 2020-03-03 15:40 | NUR ---
ESBL IN URINE: PATIENT PUT ON CONTACT ISOLATION AND HAS IV ANTIBIOTIC TO COVER ESBL IN URINE.ID WILL DO HIS ROUNDS LATER.
[2020-03-03 15:58] VITALS: BP_SYST 98
[2020-03-03] MEDS ORDERED: ERTA1VIA IJ (17:24)
--- NOTE | 2020-03-03 17:25 | NUR ---
RN ROUNDS: RESTING. NO DISTRESS.
--- NOTE | 2020-03-03 18:41 | NUR ---
CLOSING NOTES: PATIENT ON THE BED,WATCHING SHOWS FROM HER PHONE. DENIES ANY PAIN.UROSTOMY IN PLACE. CALL LIGHT WITH IN REACH. BED LOCKED AT LOWEST POSITION. STABLE.
--- NOTE | 2020-03-03 19:30 | NUR ---
Opening Notes Patient is awake, alert and oriented x4. Breathing is even and unlabored on RA. Pt C/O back pain 3/0-10. IV site on left wrist, 22 gauge intact at this time. D5 1/2 NS still infusing at this time. Safety and fall precautions in place. Bed in lowest position, alarm on, locked. call light is with patient. Will continue to monitor.
[2020-03-03 20:00] VITALS: BP_SYST 109
--- NOTE | 2020-03-03 20:00 | NUR ---
BACK PAIN/ NORCO MED: PATIENT REPORTS BACK PAIN, RATING HER PAIN 7 ON SCALE OF 0-10. NORCO 10-325 GIVEN TO PATIENT. MED ACTIONS AND SIDE EFFECTS EXPLAINED TO PATIENT. PATIENT VERBALIZED UNDERSTANDING. SAFETY AND FALL PRECAUTIONS ARE IN PLACE. CALL LIGHT IS WITH PATIENT. WILL REASSESS THE PAIN.
--- NOTE | 2020-03-03 21:25 | NUR ---
Med pass/Zosyn: Patient given scheduled med. no sign of infiltration noted. will continue to monitor.
--- NOTE | 2020-03-03 22:50 | NUR ---
BACK PAIN/MORPHINE: PATIENT REPORTS BACK PAIN, RATING HER PAIN 9 ON THE SCALE OF 0-10. ADMINISTERED MORPHINE. PATIENT TOLERATED WELL. WILL REASSESS THE PAIN.
[2020-03-03] MEDS: ONDANSETRON HCL 4 MG/2 ML VIAL IVP PRN (22:52)
[2020-03-04] VITALS: BP_SYST 106
--- NOTE | 2020-03-04 00:45 | NUR ---
RN ROUNDS: PATIENT IS AWAKE, REQUESTING UROSTOMY BAG TO BE EMPTIED. UROSTOMY BAG EMPTIED. PATIENT REPOSITIONED IN THE BED. WILL CONTINUE TO MONITOR PATIENT.
--- NOTE | 2020-03-04 02:35 | NUR ---
RN ROUNDS: PATIENT IS SLEEPING. BREATHING UNLABORED AND EVEN ON RA. IVF RUNNING ORDERED RATE. NO S/S ACUTE DISTRESS NOTED AT THIS TIME. SAFETY,FALL, AND CONTACT PRECAUTIONS ARE IN PLACE. WILL CONTINUE TO MONITOR.
--- NOTE | 2020-03-04 04:17 | NUR ---
RN ROUNDS: PATIENT IS IN BED. CURRENTLY SLEEPING. BREATHING UNLABORED AND EVEN ON RA. IVF RUNNING ORDERED RATE. NO S/S ACUTE DISTRESS NOTED AT THIS TIME. SAFETY,FALL, AND CONTACT PRECAUTIONS ARE IN PLACE. WILL CONTINUE TO MONITOR.
[2020-03-04] MEDS: D5/0.45 NS 1,000 ML IV SCH (05:02)
[2020-03-04] MEDS: MORPHINE 2 MG/ML INJ. SYRINGE IVP PRN (05:09)
[2020-03-04] MEDS: NORMAL SALINE 5 ML DISP.SYRIN IVF SCH (05:46)
[2020-03-04] MEDS: PIPERACILLIN/TAZO 4.5GM/DEX-IS 100 ML IV SCH (05:46)
[2020-03-04 06:08] LABS: BASOPHILS # (AUTO) 0.1 K/uL (0.0-0.2); BASOPHILS % (AUTO) 1.7 % (0.0-2.0); EOSINOPHILS # (AUTO) 0.7 K/uL (0.0-0.4); EOSINOPHILS % (AUTO) 11.9 % (0.0-4.0); HEMATOCRIT 26.7 % (36-48); LYMPHOCYTES % (AUTO) 34.1 % (20.5-51.5); MEAN CORPUSCULAR HEMOGLOBIN 31 pg (27-31); MEAN CORPUSCULAR HGB CONC 34 % (32-36); MEAN CORPUSCULAR VOLUME 94 fL (79.0-98.0); MONOCYTES # (AUTO) 0.6 K/uL (0.0-1.0); MONOCYTES % (AUTO) 10.3 % (1.7-9.3); NEUTROPHILS # (AUTO) 2.5 K/uL (1.8-7.7); PLATELET COUNT (AUTO) 490 K/uL (130-430); RED BLOOD CELL COUNT(AUTO) 2.85 MIL/uL (4.2-6.2); RED CELL DISTRIBUTION WIDTH 14.9 % (9.0-15.0); WHITE BLOOD COUNT (AUTO) 5.9 K/uL (4.8-10.8)
--- NOTE | 2020-03-04 06:22 | NUR ---
CLOSING NOTE: PATIENT GIVEN MORNING SCHEDULED MED. HYGIENE CARE PERFORMED. PATIENT TOLERATED WELL. NO S/S ACUTE DISTRESS NOTED. BREATHING EVEN AND UNLABORED ON RA. IVF RUNNING ORDERED RATE. NO SIGN OF INFILTRATION NOTED. SAFETY AND FALL PRECAUTIONS ARE IN PLACE. CALL LIGHT IS WITH PATIENT.WILL ENDORSE PATIENT CARE TO DAY SHIFT RN.
[2020-03-04 06:31] LABS: C-REACTIVE PROTEIN QUANT 7.2 mg/dL (0-0.5); CALCIUM 7.9 mg/dL (8.4-11.0); CREATININE 0.45 mg/dL (0.55-1.30)
[2020-03-04 07:17] LABS: ERYTHROCYTE SEDIMENTATION RATE 55 MM/HR (0-20)
--- NOTE | 2020-03-04 07:30 | NUR ---
AM rounds: Patient is asleep. No signs of distress noted. On contact isolation for ESBL of urine. Call light within reach.
[2020-03-04 07:38] LABS: POTASSIUM 2.9 mmol/L (3.5-5.1)
--- NOTE | 2020-03-04 07:56 | NUR ---
HIGH ALERT NOTE: Called Dr. Javid Guillen at [phone] identified within the medical roster to verify physician authenticity.
[2020-03-04] MEDS: lisinopriL 20 MG TABLET PO SCH (09:00)
[2020-03-04] MEDS ORDERED: POTASSIUM CHLORIDE 40 MEQ in NS 250 ML IV ONE (09:00)
[2020-03-04 09:15] VITALS: BP_SYST 102
--- NOTE | 2020-03-04 09:35 | NUR ---
Discharge Planning: DCP arranged transportation with [facility] ([phone]) to [facility] ([phone]) [id number], DCP took patient packet to [facility]. Addendum: 03/04/20 at 0939 by Vikki Darling DP ADDITIONAL INFO; [facility] ([phone]) 1130am BLS to [facility] ([phone]) [id number]
[2020-03-04 12:14] VITALS: BP_SYST 104
[2020-03-04 12:46] VITALS: BP_SYST 104
--- NOTE | 2020-03-04 14:50 | NUR ---
D/C Patient Patient given medication reconciliation form and D/C instructions. Exit Care provided. Patient verbalized understanding. discussed with patient the results and treatment provided. Patient in stable condition, ID band removed. IV is Patient educated on pain management. All belongings sent with patient. Discharged with [facility]
== END 2020-03-04 13:57 | DRG 720 ==
LOC: SED 13:02 → SMU 16:15
PROVIDERS: ADMIT Preventive Medicine Preventive Medicine/Occupational Environmental Medicine; ATTEND Preventive Medicine Preventive Medicine/Occupational Environmental Medicine
DX: A41.9 Sepsis, unspecified organism (principal); N39.0 Urinary tract infection, site not specified; E87.1 Hypo-osmolality and hyponatremia; B96.20 Unspecified Escherichia coli [E. coli] as the cause of diseases classified elsewhere; D64.9 Anemia, unspecified; E83.51 Hypocalcemia; E83.52 Hypercalcemia; E88.09 Other disorders of plasma-protein metabolism, not elsewhere classified; E87.6 Hypokalemia; G80.9 Cerebral palsy, unspecified; Z16.12 Extended spectrum beta lactamase (ESBL) resistance; Z16.19 Resistance to other specified beta lactam antibiotics; Z20.828 Contact with and (suspected) exposure to other viral communicable diseases; G89.29 Other chronic pain; I10 Essential (primary) hypertension; M41.9 Scoliosis, unspecified; Q05.9 Spina bifida, unspecified; Z74.01 Bed confinement status; Z91.81 History of falling; Z93.6 Other artificial openings of urinary tract status; Z88.1 Allergy status to other antibiotic agents; Z91.040 Latex allergy status; Z79.899 Other long term (current) drug therapy; E43 Unspecified severe protein-calorie malnutrition
CPT/HCPCS: 36415; 71045; 76770; 80048; 80053; 81000-TC; 83605; 83735-TC; 84100-TC; 85007; 85025; 85027; 85651-TC; 86140; 87040-TC; 87081; 87086; 93005; 96361; 96374; 96375; 99291; A5061; J0696; J2270; J2405; J2543; J3480; J7050; J7060